=== PATIENT | female | born 1985 | race Caucasian/White ===

== ENCOUNTER 2023-10-16 09:28 | Emergency (ER) | payer BC ==
[~2023-10-16] VITALS: Ht 180.3 cm; Wt 97.9 kg
[2023-10-16] MEDS ORDERED: IBUP-1114 PO (09:37)
[2023-10-16] MEDS ORDERED: BUPR300T92 (09:37)
[2023-10-16] MEDS ORDERED: SERTRALINE (09:37)
[2023-10-16] MEDS ORDERED: AZIT-12 (09:37)
[2023-10-16] MEDS ORDERED: KETOROLAC 30 MG/ML 1ML VIAL IM ONE (11:30)
[2023-10-16] MEDS ORDERED: GABAPENTIN 300 MG CAP PO ONE (11:30)
[2023-10-16 12:22] VITALS: BP 132/70; TEMP 97.6; O2SAT 99
[2023-10-16] MEDS ORDERED: GABA-284 PO (13:14)
[2023-10-16] MEDS ORDERED: IBUP80TA PO (13:14)
== END 2023-10-16 13:24 | disposition home or self-care (01) ==
LOC: M ED 09:28
DX: M50.13 Cervical disc disorder with radiculopathy, cervicothoracic region (principal); M48.02 Spinal stenosis, cervical region; I10 Essential (primary) hypertension; K80.20 Calculus of gallbladder without cholecystitis without obstruction; F10.10 Alcohol abuse, uncomplicated; Z88.8 Allergy status to other drugs, medicaments and biological substances; Z79.1 Long term (current) use of non-steroidal anti-inflammatories (NSAID); Z79.899 Other long term (current) drug therapy
CPT/HCPCS: 70450; 72052; 72125; 72128; 96372; 99283; J1885

== ENCOUNTER → 2023-11-27 | Outpatient (REF) | payer BC ==
[~2023-11-27] MED LIST: AZIT-12; BUPR300T92; GABA-284 PO; IBUP-1114 PO; IBUP80TA PO; SERTRALINE
== END ==
LOC: M SFHCWAGY 18:29
PROVIDERS: ATTEND Nurse Practitioner Family
DX: Z12.4 Encounter for screening for malignant neoplasm of cervix (principal)
CPT/HCPCS: 87624; G0123

== ENCOUNTER → 2023-11-27 | Outpatient (CLI) | payer BC | LOC: EDUNIT# 11-26 15:30 → M WHC 13:18 | PROVIDERS: ATTEND Nurse Practitioner Family | DX: Z12.31 Encounter for screening mammogram for malignant neoplasm of breast (principal) ==

== ENCOUNTER → 2023-12-11 | Outpatient (CLI) | payer BC | LOC: M WHC 14:30 | PROVIDERS: ATTEND Nurse Practitioner Family | DX: Z13.820 Encounter for screening for osteoporosis (principal); M85.80 Other specified disorders of bone density and structure, unspecified site; Z79.3 Long term (current) use of hormonal contraceptives ==

== ENCOUNTER → 2024-06-05 | Outpatient (REF) | payer BC ==
[~2024-06-05] MED LIST changes: +BUPR-597; -BUPR300T92
[2024-06-05 17:18] LABS: APPEARANCE, URINE CLEAR (CLEAR); BACTERIA, URINE AUTO NEGATIVE (NEGATIVE); BILIRUBIN, URINE AUTO NEGATIVE (NEGATIVE); BLOOD, URINE BLOOD 1+ (NEGATIVE); COLOR, URINE YELLOW (YELLOW); GLUCOSE, URINE (UA) AUTO NEGATIVE (NEGATIVE); KETONE, URINE AUTO NEGATIVE (NEGATIVE); LEUKOCYTE ESTERASE, URINE AUTO NEGATIVE (NEGATIVE); MUCUS, URINE SMALL (NEGATIVE); NITRITE, URINE AUTO NEGATIVE (NEGATIVE); PROTEIN, URINE AUTO NEGATIVE (NEGATIVE); RBC, URINE AUTO 6 /HPF (0-3); SPECIFIC GRAVITY URINE AUTO 1.027 (1.002-1.035); SQUAMOUS EPITHELIAL CELL UR AU 1 /HPF (0-6); UROBILINOGEN, URINE AUTO 0.2 mg/dL (0.0-2.0); WBC, URINE AUTO 1 /HPF (0-3)
[2024-06-05 18:57] LABS: Trichomonas vaginalis (AMP) NOT DETECTED (NEGATIVE)
[2024-06-05 19:21] LABS: GC DNA AMPLIFICATION NEGATIVE (NEGATIVE)
== END ==
LOC: M LAB REF 16:24
PROVIDERS: ATTEND Physician Assistant Medical
DX: Z20.2 Contact with and (suspected) exposure to infections with a predominantly sexual mode of transmission (principal)

== ENCOUNTER 2025-08-16 07:46 | Emergency (ER) | payer BC ==
[~2025-08-16] VITALS: Ht 180.3 cm; Wt 92.8 kg
[~2025-08-16 07:46] MED LIST changes: -BUPR-597; +BUPR-766
[2025-08-16] MEDS ORDERED: SERT-141 PO (09:03)
[2025-08-16] MEDS: ACETAMINOPHEN *IV* 1,000 MG in IV 1 EA IV ONE (09:58)
[2025-08-16] MEDS: METHOCARBAMOL 1,000 MG/10 ML VIAL IV ONE (10:14)
[2025-08-16 10:38] VITALS: BP 113/58; TEMP 97; O2SAT 100
[2025-08-16] MEDS ORDERED: METH-1164 PO (11:04)
== END 2025-08-16 11:24 | disposition home or self-care (01) ==
LOC: M ED 07:46
DX: M62.838 Other muscle spasm (principal); F41.9 Anxiety disorder, unspecified; Z88.1 Allergy status to other antibiotic agents; Z79.1 Long term (current) use of non-steroidal anti-inflammatories (NSAID); Z79.899 Other long term (current) drug therapy
CPT/HCPCS: 96365; 96375; 99284; J0134; J2800